=== PATIENT | female | born 1940 | race Caucasian/White ===

== ENCOUNTER 2024-04-11 09:23 | Inpatient (IN) | payer BC, MEDICAID, MEDICARE ==
[~2024-04-11] VITALS: Ht 147.3 cm; Wt 51.3 kg
[2024-04-11 09:38] VITALS: O2SAT 100
[2024-04-11 10:24] LABS: BASOPHILS % 0.8 % (0.0-2.0); DIFFERENTIAL COMMENT 0; HEMATOCRIT. 33.7 % (36.0-48.0); HEMOGLOBIN. 10.9 g/dL (12.0-16.0); LYMPHOCYTES % 24.1 % (20.0-50.0); MEAN CORPUSCULAR HEMOGLOBIN 23.9 pg (28.0-32.0); MEAN CORPUSCULAR HGB CONC 32.4 g/dL (31.0-37.0); MEAN CORPUSCULAR VOLUME 73.8 fL (81.0-99.0); MEAN PLATELET VOLUME 9.1 fl (7.4-10.4); MONOCYTES % 5.5 % (2.0-8.0); NEUTROPHILS % 67.6 % (40.0-76.0); PLATELET 224 x1000/uL (130-400); RED BLOOD CELL COUNT 4.56 mill/uL (4.2-5.4); RED CELL DISTRIBUTION WIDTH 17.6 % (11.6-14.6); WHITE BLOOD COUNT 10.4 x1000/uL (4.5-11.0)
[2024-04-11 10:40] LABS: CHLORIDE 111 mEq/L (98-107); POTASSIUM 4.1 mEq/L (3.5-5.1); SODIUM 140 mEq/L (136-145)
[2024-04-11 10:41] LABS: CARBON DIOXIDE 26 mEq/L (21-32)
[2024-04-11 10:45] LABS: TROPONIN I HIGH SENSITIVITY 12 ng/L (3.0-34)
[2024-04-11 10:46] LABS: CREATININE 0.9 mg/dL (0.6-1.0); GLUCOSE 107 mg/dL (70-105); UREA NITROGEN BLOOD 13 mg/dL (9-23)
[2024-04-11] MEDS ORDERED: MECLIZINE 25MG TABLET PO ONE (11:00)
[2024-04-11] MEDS ORDERED: METOCLOPRAMIDE HCL 10MG/2ML VIAL IV ONE (11:00)
[2024-04-11] MEDS ORDERED: ACETAMINOPHEN 325MG TABLET PO ONE (11:00)
[2024-04-11 12:32] LABS: TROPONIN I HIGH SENSITIVITY 12 ng/L (3.0-34)
[2024-04-11] MEDS: MECLIZINE 12.5MG TABLET PO NR (17:53)
[2024-04-11] MEDS: ACETAMINOPHEN 325MG TABLET PO NR (17:55)
[2024-04-11] MEDS: METOCLOPRAMIDE HCL 10MG/2ML VIAL IV NR (17:55)
[2024-04-11] MEDS ORDERED: IOHEXOL-350 100 ML BOTTLE ONE (21:44)
[2024-04-11 23:26] VITALS: BP 119/46; PULSE 59; RESP 20; TEMP 97.9
[2024-04-11 23:40] VITALS: BP 119/46; PULSE 59; RESP 20; TEMP 97.9
[2024-04-12] MEDS ORDERED: CLOP-31 MT (02:19)
[2024-04-12] MEDS ORDERED: AMLO10TA80 MT (02:19)
[2024-04-12] MEDS ORDERED: ATEN50TA MT (02:19)
[2024-04-12] MEDS ORDERED: LISI10TA26 MT (02:19)
[2024-04-12] MEDS ORDERED: ATOR40TA70 MT (02:19)
[2024-04-12] MEDS ORDERED: NITR0.4T49 SL (02:19)
[2024-04-12] MEDS ORDERED: ERGO1250 (02:19)
[2024-04-12] MEDS ORDERED: EVOL140P3 SQ (02:19)
[2024-04-12] MEDS ORDERED: ASPI-1497 PO (02:19)
[2024-04-12 04:00] VITALS: BP 116/97; PULSE 58; RESP 18; TEMP 97.9
[2024-04-12] MEDS ORDERED: ONDANSETRON HCL 4MG/2ML INJ IV PRN (04:00)
[2024-04-12] MEDS ORDERED: NITROGLYCERIN 0.4MG TABLET SL SL PRN (04:00)
[2024-04-12] MEDS ORDERED: CLONIDINE 0.1MG TABLET PO PRN (04:00)
[2024-04-12] MEDS ORDERED: ACETAMINOPHEN 650MG/20.3ML UDC PO PRN (04:00)
[2024-04-12 08:00] VITALS: BP 117/40; PULSE 58; RESP 18; TEMP 97.8
[2024-04-12] MEDS: ATENOLOL 50 MG TABLET PO SCH (09:00)
[2024-04-12] MEDS: LISINOPRIL 10MG TABLET PO SCH (09:00)
[2024-04-12] MEDS: AMLODIPINE 10MG TABLET PO SCH (09:00)
[2024-04-12] MEDS: ASPIRIN 81MG TABLET PO SCH (09:28)
[2024-04-12] MEDS: CLOPIDOGREL 75MG TABLET PO SCH (09:29)
[2024-04-12 10:42] LABS: BASOPHILS % 1.4 % (0.0-2.0); DIFFERENTIAL COMMENT 0; EOSINOPHILS % 2.4 % (0.0-5.0); HEMATOCRIT. 32.2 % (36.0-48.0); HEMOGLOBIN. 10.5 g/dL (12.0-16.0); LYMPHOCYTES % 28.6 % (20.0-50.0); MEAN CORPUSCULAR HGB CONC 32.7 g/dL (31.0-37.0); MEAN CORPUSCULAR VOLUME 73.3 fL (81.0-99.0); MEAN PLATELET VOLUME 9.5 fl (7.4-10.4); MONOCYTES % 6.6 % (2.0-8.0); PLATELET 211 x1000/uL (130-400); RED BLOOD CELL COUNT 4.39 mill/uL (4.2-5.4); RED CELL DISTRIBUTION WIDTH 17.3 % (11.6-14.6); WHITE BLOOD COUNT 8.2 x1000/uL (4.5-11.0)
[2024-04-12 11:24] LABS: CHLORIDE 110 mEq/L (98-107); POTASSIUM 3.9 mEq/L (3.5-5.1); SODIUM 140 mEq/L (136-145)
[2024-04-12 11:27] LABS: CARBON DIOXIDE 24 mEq/L (21-32)
[2024-04-12 11:32] LABS: CREATININE 0.9 mg/dL (0.6-1.0); GLUCOSE 161 mg/dL (70-105); TRIGLYCERIDE 62 mg/dL (0-150); UREA NITROGEN BLOOD 14 mg/dL (9-23)
[2024-04-12 11:33] LABS: LDL CHOLESTEROL 12 mg/dL (5-100)
[2024-04-12 11:34] LABS: ALANINE AMINOTRANSFERASE 15 IU/L (10-49); ALBUMIN 4.2 g/dL (3.2-4.8); ASPARTATE AMINOTRANSFERASE 25 IU/L (<34); BILIRUBIN TOTAL 0.4 mg/dL (0.1-1.0); CHOLESTEROL 75 mg/dL (<200); HDL CHOLESTEROL 53 mg/dL (>65); PROTEIN TOTAL 7.1 g/dL (6.0-8.3)
[2024-04-12 12:00] VITALS: BP 136/52; PULSE 59; RESP 20; TEMP 98.4
[2024-04-12 16:00] VITALS: BP 134/43; PULSE 71; RESP 22; TEMP 98.6
[2024-04-12 20:00] VITALS: BP 147/59; PULSE 67; RESP 20; TEMP 97.9
[2024-04-12] MEDS: ATORVASTATIN CALCIUM 40MG TABLET PO SCH (20:42)
[2024-04-13] VITALS: BP 134/52; PULSE 64; RESP 18; TEMP 98.3
[2024-04-13 04:00] VITALS: BP 141/62; PULSE 69; RESP 18; TEMP 98.6
[2024-04-13 07:26] LABS: CHLORIDE 107 mEq/L (98-107); POTASSIUM 4.1 mEq/L (3.5-5.1); SODIUM 142 mEq/L (136-145)
[2024-04-13 07:27] LABS: CALCIUM 9.3 mg/dL (8.7-10.4); CARBON DIOXIDE 25 mEq/L (21-32)
[2024-04-13 07:32] LABS: CREATININE 0.8 mg/dL (0.6-1.0); GLUCOSE 91 mg/dL (70-105); UREA NITROGEN BLOOD 11 mg/dL (9-23)
[2024-04-13 07:56] LABS: BASOPHILS % 1.1 % (0.0-2.0); DIFFERENTIAL COMMENT 0; EOSINOPHILS % 4.1 % (0.0-5.0); HEMOGLOBIN. 9.8 g/dL (12.0-16.0); MEAN CORPUSCULAR HGB CONC 32.7 g/dL (31.0-37.0); MEAN CORPUSCULAR VOLUME 73.3 fL (81.0-99.0); MEAN PLATELET VOLUME 9.4 fl (7.4-10.4); MONOCYTES % 8.2 % (2.0-8.0); NEUTROPHILS % 50.6 % (40.0-76.0); PLATELET 193 x1000/uL (130-400); RED BLOOD CELL COUNT 4.09 mill/uL (4.2-5.4); RED CELL DISTRIBUTION WIDTH 17.7 % (11.6-14.6); WHITE BLOOD COUNT 8.3 x1000/uL (4.5-11.0)
[2024-04-13 08:00] VITALS: BP 147/60; PULSE 76; RESP 18; TEMP 97.2
[2024-04-13] MEDS ORDERED: LISI10TA26 PO (11:58)
[2024-04-13] MEDS ORDERED: METO25TA6 PO (11:58)
[2024-04-13 12:42] VITALS: PULSE 92
[2024-04-13] MEDS: METOPROLOL TARTRATE 25MG TABLET PO SCH (12:42)
== END 2024-04-13 13:37 | disposition home or self-care (01) | DRG 305 ==
LOC: ER 09:23 → EDBEDREQ 13:37 → 5WST 22:17 → 7WST 23:25
PROVIDERS: ADMIT Internal Medicine; ATTEND Internal Medicine
DX: I16.0 Hypertensive urgency (principal); G45.9 Transient cerebral ischemic attack, unspecified; I10 Essential (primary) hypertension; D50.9 Iron deficiency anemia, unspecified; K21.9 Gastro-esophageal reflux disease without esophagitis; R00.1 Bradycardia, unspecified; I25.10 Atherosclerotic heart disease of native coronary artery without angina pectoris; R07.89 Other chest pain; I25.2 Old myocardial infarction
CPT/HCPCS: 36415; 70496; 70498; 70551; 71045; 71275; 80048; 80053; 80061; 84484; 85025; 93005; 93306; 99285; J2765; J8597; Q9967

== ENCOUNTER 2025-11-04 11:58 | Emergency (ER) | payer BC, MEDICAID ==
[~2025-11-04] VITALS: Ht 149.9 cm; Wt 55.0 kg
[~2025-11-04 11:58] MED LIST: AMLO10TA80 MT; ASPI-1497 PO; ATOR40TA70 MT; CLOP-31 MT; ERGO1250; EVOL140P3 SQ; LISI10TA26 MT; LISI10TA26 PO; METO25TA6 PO; NITR0.4T49 SL
[2025-11-04 12:16] VITALS: O2SAT 97
[2025-11-04] MEDS: SODIUM CHLORIDE 0.9% 500 ML IV ONE (12:39)
[2025-11-04 12:40] LABS: BASOPHILS % 0.5 % (0.0-2.0); EOSINOPHILS % 0.8 % (0.0-5.0); HEMATOCRIT. 38.7 % (36.0-48.0); HEMOGLOBIN. 13.1 g/dL (12.0-16.0); LYMPHOCYTES % 21.3 % (20.0-50.0); MEAN PLATELET VOLUME 8.3 fl (7.4-10.4); MONOCYTES % 6.8 % (2.0-8.0); NEUTROPHILS % 70.6 % (40.0-76.0); PLATELET 236 x1000/uL (130-400); RED BLOOD CELL COUNT 4.77 mill/uL (4.2-5.4); RED CELL DISTRIBUTION WIDTH 16.0 % (11.6-14.6)
[2025-11-04 12:53] LABS: CREATININE 0.9 mg/dL (0.6-1.0); UREA NITROGEN BLOOD 8 mg/dL (9-23)
[2025-11-04 12:54] LABS: PROTEIN TOTAL 7.8 g/dL (6.0-8.3)
[2025-11-04 12:55] LABS: ASPARTATE AMINOTRANSFERASE 26 IU/L (<34); BILIRUBIN DIRECT 0.2 mg/dL (<=3.0); BILIRUBIN TOTAL 0.4 mg/dL (0.1-1.0)
[2025-11-04 13:50] LABS: CLARITY URINE CLEAR (CLEAR); COLOR URINE YELLOW (YELLOW); GLUCOSE URINE NEGATIVE (NEGATIVE); KETONES URINE NEGATIVE (NEGATIVE); LEUKOCYTE ESTERASE URINE NEGATIVE (NEGATIVE); NITRITE URINE NEGATIVE (NEGATIVE); OCCULT BLOOD URINE NEGATIVE (NEGATIVE); PH URINE 7.0 (4.5-8.0); PROTEIN URINE NEGATIVE (NEGATIVE); SPECIFIC GRAVITY URINE 1.011 (1.005-1.030); UROBILINOGEN URINE 0.2 E.U./dL (0.2-1.0)
[2025-11-04] MEDS: IOHEXOL-300 100 ML BOTTLE ONE (14:10)
[2025-11-04] MEDS ORDERED: POLY17PO3 MT (14:23)
[2025-11-04] MEDS ORDERED: PROT40 MT (14:23)
[2025-11-04 14:33] VITALS: BP 151/72; PULSE 97; RESP 18; TEMP 36.8; O2SAT 97
== END 2025-11-04 15:03 | disposition home or self-care (01) ==
LOC: ER 13:32 → CMPBEDREQ 17:51
DX: K29.70 Gastritis, unspecified, without bleeding (principal); I11.9 Hypertensive heart disease without heart failure; I25.2 Old myocardial infarction; Z79.899 Other long term (current) drug therapy; Z86.73 Personal history of transient ischemic attack (TIA), and cerebral infarction without residual deficits
CPT/HCPCS: 99285; 74177; 80076; 80048; 81003; 83690; 83735; 85025; 36415; Q9967; J7030